=== PATIENT | male | born 1950 | race Caucasian/White ===

== ENCOUNTER 2018-06-17 15:49 | Emergency (ER) | payer MEDICARE, BC ==
--- NOTE | 2018-06-17 16:53 | EDM.PDOC ---
ED HPI GENERAL MEDICAL PROBLEM - General Chief Complaint: Lower Extremity Injury/Pain Stated Complaint: SWOLLEN LEFT CALVE AND QUAD PAIN Time Seen by Provider: 06/17/18 16:00 Source of Information: Reports: Patient History Limitations: Reports: No Limitations - History of Present Illness INITIAL COMMENTS - FREE TEXT/NARRATIVE: 67 yo M referred by [facility] for c/o increased swelling, warmth, and pain in Left leg. He started therapy at [facility] after having an R Achilles tear 04/05. He saw orthopedic Dr. Teofilo Vera at [facility] and it was decided that no surgical intervention was needed at this time as "it's not a full tear, only about 4cm". He first started having issues when he was on the elliptical and did some walking on 06/10 and then on the felt his L calf was "tight, hard, and painful". His calf has been getting better ever since, but he states it's still swollen and he now has 3/10 dull pain. Today he was at PT had started having 4-5/10 heel pain. His PT, Abilio Fall, took the temperature of his leg and said it was "4 degrees hotter on the left than the right" and recommended he come in to r/o a DVT. He is not on blood thinners. He has no h/o DVT/PE. He denies any other symptoms at this time, including F/C, SOB, erythema or paleness of the leg. No new trauma, no wounds present on the leg. He took ibuprofen 600mg x2 with some relief, has been using "vibrating heat" on the leg at home, and has been somewhat elevating his legs on the couch. No other concerns at this time. Other Treatments BACTERIOLOGIST PHARMACEUTICAL: aspirin 500 mg prn; motrin 600 mg prn Left Leg Pain Score (Numeric/FACES): 3 - Related Data Allergies Allergy/AdvReac Type Severity Reaction Status Date / Time No Known Allergies Allergy Verified 06/17/18 16:08 Home Meds: Home Meds Rivaroxaban [Xarelto] 15 mg PO BID 21 Days #42 tablet 06/17/18 [Rx] Rivaroxaban [Xarelto] 20 mg PO DAILY 90 Days #90 tablet 06/17/18 [Rx] Past Medical History Respiratory History: Reports: Pneumonia, Recurrent Musculoskeletal History: Reports: Other (See Below) Other Musculoskeletal History: achilles tendon tear. - Past Surgical History Musculoskeletal Surgical History: Reports: Hip Replacement Other Musculoskeletal Surgeries/Procedures:: bilaterally Social & Family History - Tobacco Use Smoking Status *Q: Never Smoker - Caffeine Use Caffeine Use: Reports: Coffee, Soda, Tea - Recreational Drug Use Recreational Drug Use: No Review of Systems - Review of Systems Review Of Systems: ROS reveals no pertinent complaints other than HPI. ED EXAM, GENERAL - Physical Exam Exam: See Below Exam Limited By: No Limitations General Appearance: Alert, WD/WN, No Apparent Distress Eye Exam: Bilateral Eye: EOMI, Normal Inspection, PERRL Ears: Normal External Exam, Hearing Grossly Normal Peripheral Pulses: 3+: Posterior Tibial (L), Posterior Tibial (R), Dorsalis Pedis (L), Dorsalis Pedis (R) Extremities: Normal Range of Motion, Non-Tender, Normal Capillary Refill, Pedal Edema (2+ pitting bilateral LE), Joint Swelling (Left ankle likely 2/2 edema, good ROM no trauma), Leg Pain (Left leg, mild), Increased Warmth (Left leg slightly warmer than right). No: Shanti's Sign, Pallor, Redness Neurological: Alert, Oriented, CN II-XII Intact, Normal Cognition, Normal Gait, Normal Reflexes, No Motor/Sensory Deficits Psychiatric: Normal Affect, Normal Mood Skin Exam: Warm, Dry, Intact, Normal Color, No Rash, Increased Warmth (Left leg slightly warmer than right). No: Cool, Cyanosis, Erythema, Pallor, Wound/ Incision Course - Vital Signs Last Recorded V/S: Last Vital Signs Temp 98.3 F 06/17/18 16:05 Pulse 99 06/17/18 16:05 Resp 20 06/17/18 16:05 BP 145/98 H 06/17/18 16:05 Pulse Ox 96 06/17/18 16:05 - Orders/Labs/Meds Labs: Laboratory Tests 06/17/18 06/17/18 06/17/18 Range/Units 16:55 16:55 16:55 WBC 6.80 (4.23-9.07) K/mm3 RBC 4.48 L (4.63-6.08) M/mm3 Hgb 14.1 (13.7-17.5) gm/L Hct 41.6 (40.1-51.0) % MCV 92.9 H (79.0-92.2) fl MCH 31.5 (25.7-32.2) pg MCHC 33.9 (32.2-35.5) g/dl RDW Std Deviation 42.0 (35.1-43.9) fL Plt Count 226 (163-337) K/mm3 MPV 9.7 (9.4-12.3) fl Neut % (Auto) 61.6 (34.0-67.9) % Lymph % (Auto) 20.1 L (21.8-53.1) % Casey % (Auto) 11.6 (5.3-12.2) % Eos % (Auto) 5.7 (0.8-7.0) Baso % (Auto) 0.7 (0.1-1.2) % Neut # (Auto) 4.18 (1.78-5.38) K/mm3 Lymph # (Auto) 1.37 (1.32-3.57) K/mm3 Casey # (Auto) 0.79 (0.30-0.82) K/mm3 Eos # (Auto) 0.39 (0.04-0.54) K/mm3 Baso # (Auto) 0.05 (0.01-0.08) K/mm3 PT (9.5-12.1) SECONDS INR D-Dimer, Quantitative 4.33 H (0.19-0.50) mg/L Sodium (136-145) mEq/L Potassium (3.5-5.1) mEq/L Chloride (98-107) mEq/L Carbon Dioxide (21-32) mEq/L Anion Gap (5-15) BUN (7-18) mg/dL Creatinine (0.7-1.3) mg/dL Est Cr Clr Drug Dosing mL/min Estimated GFR (MDRD) (>60) mL/min BUN/Creatinine Ratio (14-18) Glucose (80-115) mg/dL Calcium (8.5-10.1) mg/dL Total Bilirubin (0.2-1.0) mg/dL AST (15-37) U/L ALT (16-63) U/L Alkaline Phosphatase (46-116) U/L C-Reactive Protein 3.2 H* (<1.0) mg/dL Total Protein (6.4-8.2) g/dl Albumin (3.4-5.0) g/dl Globulin gm/dL Albumin/Globulin Ratio (1-2) 06/17/18 06/17/18 Range/Units 16:55 16:55 WBC (4.23-9.07) K/mm3 RBC (4.63-6.08) M/mm3 Hgb (13.7-17.5) gm/L Hct (40.1-51.0) % MCV (79.0-92.2) fl MCH (25.7-32.2) pg MCHC (32.2-35.5) g/dl RDW Std Deviation (35.1-43.9) fL Plt Count (163-337) K/mm3 MPV (9.4-12.3) fl Neut % (Auto) (34.0-67.9) % Lymph % (Auto) (21.8-53.1) % Casey % (Auto) (5.3-12.2) % Eos % (Auto) (0.8-7.0) Baso % (Auto) (0.1-1.2) % Neut # (Auto) (1.78-5.38) K/mm3 Lymph # (Auto) (1.32-3.57) K/mm3 Casey # (Auto) (0.30-0.82) K/mm3 Eos # (Auto) (0.04-0.54) K/mm3 Baso # (Auto) (0.01-0.08) K/mm3 PT 10.9 (9.5-12.1) SECONDS INR 1.00 D-Dimer, Quantitative (0.19-0.50) mg/L Sodium 145 (136-145) mEq/L Potassium 4.1 (3.5-5.1) mEq/L Chloride 109 H (98-107) mEq/L Carbon Dioxide 24 (21-32) mEq/L Anion Gap 16.1 H (5-15) BUN 18 (7-18) mg/dL Creatinine 1.3 (0.7-1.3) mg/dL Est Cr Clr Drug Dosing 56.93 mL/min Estimated GFR (MDRD) 55 (>60) mL/min BUN/Creatinine Ratio 13.8 L (14-18) Glucose 108 (80-115) mg/dL Calcium 9.2 (8.5-10.1) mg/dL Total Bilirubin 0.5 (0.2-1.0) mg/dL AST 24 (15-37) U/L ALT 36 (16-63) U/L Alkaline Phosphatase 101 (46-116) U/L C-Reactive Protein (<1.0) mg/dL Total Protein 6.7 (6.4-8.2) g/dl Albumin 3.4 (3.4-5.0) g/dl Globulin 3.3 gm/dL Albumin/Globulin Ratio 1.0 (1-2) - Re-Assessments/Exams Free Text/Narrative Re-Assessment/Exam: 06/17/18 16:45 Doppler U/S, D-Dimer, CBC, CRP ordered 06/17/18 17:26 CBC WNL CRP 3.2 D-Dimer elevated at 4.33 Doppler U/S POSITIVE L ankle up to mid thigh 06/17/18 17:45 Will send home with a prescription for Xarelto 15mg BID x 21 days then 20mg for 3 months. Recommend f/u with primary care provider. Try to rest leg for about 1 week. Departure - Departure Time of Disposition: 17:46 Disposition: Home, Self-Care 01 Condition: Fair Clinical Impression: DVT (deep venous thrombosis) Qualifiers: DVT location: lower extremity Affected thrombotic vein of extremity: femoral Chronicity: acute Laterality: left Qualified Code(s): I82.412 - Acute embolism and thrombosis of left femoral vein - Discharge Information *PRESCRIPTION DRUG MONITORING PROGRAM REVIEWED*: Not Applicable *COPY OF PRESCRIPTION DRUG MONITORING REPORT IN PATIENT ABBE: Not Applicable Prescriptions: Rivaroxaban [Xarelto] 15 mg PO BID 21 Days #42 tablet Rivaroxaban [Xarelto] 20 mg PO DAILY 90 Days #90 tablet Instructions: Deep Vein Thrombosis Referrals: Kalen Garcia MD [Ordering Only Provider] - Forms: ED Department Discharge Additional Instructions: You were seen in the ED today for increased warmth, swelling and pain to the Left lower leg. You were found to have a deep venous thromboembolism (blood clot in the leg). You will be started on the blood thinner Xarelto- take 15mg tab twice per day for 21 days followed by 20mg tab once daily for 3 months for completion of treatment. Recommend close follow up with primary care physician. Keep your appointment tomorrow with Dr. Vera orthopedic for further instruction on how to take care of the Achilles's tendon tear. Rest the left leg for at least 1 week. Please return to ED if new or worsening symptoms.
--- NOTE | 2018-06-17 17:52 | US ---
Left lower extremity deep venous ultrasound: Duplex and color flow imaging was obtained of the left common femoral, proximal greater saphenous, superficial femoral, popliteal, posterior tibial and peroneal veins. Right common femoral vein was also evaluated. Findings: Normal Doppler blood flow is seen within the right common femoral vein. Left common femoral vein and proximal superficial femoral vein show normal compression. There is thrombus being seen within the mid and distal superficial femoral vein and extending distally into the popliteal and posterior tibial and peroneal veins. Impression: 1. Venous thrombosis within the mid superficial femoral vein and extending distally within the left lower extremity. 2. Right common femoral vein is patent. Diagnostic code #5
== END 2018-06-17 18:11 | disposition home or self-care (01) ==
LOC: JD.ED 15:49
DX: I82.412 Acute embolism and thrombosis of left femoral vein (principal)
CPT/HCPCS: 36415; 80053; 85025; 85379; 85610; 86140; 93971-26-LT; 93971-LT; 99284-25